=== PATIENT | female | born 1995 | race Caucasian/White ===

== ENCOUNTER 2020-03-28 14:36 | Outpatient (CLI) | payer BC ==
[2020-03-28 15:32] LABS: T.VAGINALIS (WET MOUNT) NO TRICHOMONAS SEEN
[2020-03-28 15:33] LABS: BACTERIA (WET MOUNT) 3+ BACTERIA SEEN; EPITHELIALS (WET MOUNT) 4+ EPITHELIALS SEEN; RBCS (WET MOUNT) 1+ RBCS SEEN; WBCS (WET MOUNT) 4+ WBCS SEEN; YEAST (WET MOUNT) YEAST SEEN
[2020-03-28 15:59] LABS: APPEARANCE,URINE CLOUDY; BILIRUBIN,URINE NEGATIVE (NEGATIVE); COLOR,URINE YELLOW; GLUCOSE, URINE NEGATIVE (NEGATIVE); KETONES,URINE NEGATIVE (NEGATIVE); LEUKOCYTE ESTERASE,URINE TRACE (NEGATIVE); NITRITE,URINE NEGATIVE (NEGATIVE); PROTEIN,URINE 100 mg/dL (NEGATIVE); URINE SPECIFIC GRAVITY 1.028
[2020-03-28 16:05] LABS: ADD MANUAL MICROSCOPIC YES
[2020-03-28 16:19] LABS: URINE AMPHETAMINES SCREEN NEGATIVE; URINE BARBITURATES SCREEN NEGATIVE; URINE BENZODIAZEPINES SCREEN NEGATIVE; URINE COCAINE SCREEN NEGATIVE; URINE METHADONE SCREEN NEGATIVE; URINE PHENCYCLIDINE SCREEN NEGATIVE
[2020-03-28 16:25] LABS: URINE MARIJUANA (THC) SCREEN UNCONFIRMED POSITIVE
[2020-03-28 17:05] LABS: CHLAM PCR NOT DETECTED (NOT DETECT)
== END 2020-03-28 15:56 | disposition home or self-care (01) ==
LOC: LC 14:36
PROVIDERS: ATTEND Obstetrics & Gynecology
DX: Z03.71 Encounter for suspected problem with amniotic cavity and membrane ruled out (principal); Z3A.25 25 weeks gestation of pregnancy; Z02.83 Encounter for blood-alcohol and blood-drug test
CPT/HCPCS: 59899; 87210; 81001; 80307; 87491; 87591; Q0114; G0480 ×2; 80349

== ENCOUNTER 2020-07-05 05:31 | Inpatient (IN) | payer BC ==
[2020-07-02 13:55] LABS: APPEARANCE,URINE CLEAR; BILIRUBIN,URINE NEGATIVE (NEGATIVE); COLOR,URINE YELLOW; GLUCOSE, URINE NEGATIVE (NEGATIVE); KETONES,URINE NEGATIVE (NEGATIVE); LEUKOCYTE ESTERASE,URINE NEGATIVE (NEGATIVE); NITRITE,URINE NEGATIVE (NEGATIVE); PROTEIN,URINE NEGATIVE (NEGATIVE); URINE SPECIFIC GRAVITY 1.016; UROBILINOGEN,URINE NEGATIVE mg/dL (<2.0)
[2020-07-02 14:08] LABS: URINE AMPHETAMINES SCREEN NEGATIVE; URINE BARBITURATES SCREEN NEGATIVE; URINE BENZODIAZEPINES SCREEN NEGATIVE; URINE COCAINE SCREEN NEGATIVE; URINE METHADONE SCREEN NEGATIVE; URINE PHENCYCLIDINE SCREEN NEGATIVE
[2020-07-02 14:19] LABS: URINE MARIJUANA (THC) SCREEN UNCONFIRMED POSITIVE
[2020-07-02 14:21] LABS: HEMATOCRIT 36.7 % (36.0-47.0); HEMOGLOBIN 12.6 g/dL (12.0-15.5); MEAN CORPUSCULAR HEMOGLOBIN 31.3 pg (27.0-33.4); MEAN CORPUSCULAR HGB CONC 34.4 g/dL (32.0-36.0); MEAN CORPUSCULAR VOLUME 91 fl (80-97); PLATELET COUNT 141 10^3/uL (150-450); RED BLOOD COUNT 4.04 10^6/uL (3.72-5.28)
[2020-07-02 14:54] LABS: ABSOLUTE MONOCYTES # (MANUAL) 0.6 10^3/uL (0.1-1.4); BAND NEUTROPHILS % (MANUAL) 1 % (3-5); BASOPHILS % (MANUAL) 0 % (0-2); EOSINOPHILS % (MANUAL) 1 % (0-6); LYMPHOCYTES % (MANUAL) 12 % (13-45); MONOCYTES % (MANUAL) 4 % (3-13); SEGMENTED NEUTROPHILS % (MAN) 80 % (42-78); TOTAL CELLS COUNTED 100
[2020-07-02 14:58] LABS: PLATELET COMMENT DECREASED; RBC MORPHOLOGY COMMENT NORMO-CYTIC/CHROMIC
[~2020-07-05 05:31] MED LIST: CEFAZOLIN 2 GM/D5W RTU 2 GM/50 ML RTUPB IV PRN; LACTATED RINGERS 1000 ML IV PRN; LIDOCAINE 0.5% INJ-PF (5 MG/ML) 50 ML SDV SUBCUT PRN
[2020-07-05] MEDS: RINGERS SOLUTION,LACTATED 1,500 ML IV PRN ×2 (06:00→06:56)
[2020-07-05] MEDS ORDERED: KETOROLAC TROMETHAMINE INJ/PF 30 MG/1 ML SDV ONE (07:22)
[2020-07-05] MEDS ORDERED: ACETAMINOPHEN 1,000 MG/100 ML RTUPB IV ONE (07:22)
[2020-07-05] MEDS ORDERED: ONDANSETRON HCL INJ/PF 4 MG/2 ML SDV ONE (07:22)
[2020-07-05] MEDS ORDERED: PHENYLEPHRINE HCL INJ/PF 10 MG/1 ML SDV ONE (07:22)
[2020-07-05] MEDS ORDERED: EPHEDRINE SULFATE INJ 50 MG/1 ML AMPULE ONE (07:22)
[2020-07-05] MEDS ORDERED: FENTANYL CITRATE INJ/PF 100 MCG/2 ML AMPUL ONE (07:22)
[2020-07-05] MEDS ORDERED: MIDAZOLAM 2 MG/2 ML INJ ONE (07:22)
[2020-07-05] MEDS ORDERED: OXYTOCIN 10 UNIT/ML VIAL ONE (07:22)
[2020-07-05] MEDS ORDERED: METHYLERGONOVINE MALEATE INJ/PF 0.2 MG/1 ML AMPULE ONE (07:23)
[2020-07-05] MEDS ORDERED: CEFAZOLIN 2 GM/D5W RTU 2 GM/50 ML RTUPB IV ONE (07:34)
[2020-07-05] MEDS ORDERED: PROMETHAZINE HCL INJ 25 MG/1 ML VIAL IV PRN ×3 (08:23→09:16)
[2020-07-05] MEDS ORDERED: OXYCODONE-ACETAMINOPHEN 5-325 MG TABLET PO PRN ×2 (08:23)
[2020-07-05] MEDS ORDERED: MEPERIDINE HCL/PF INJ 25 MG/1 ML DISP.SYRIN IV PRN (08:23)
[2020-07-05] MEDS ORDERED: DIPHENHYDRAMINE HCL 50 MG/ML VIAL IV PRN (08:23)
[2020-07-05] MEDS ORDERED: ONDANSETRON HCL INJ/PF 4 MG/2 ML SDV IV PRN (08:23)
[2020-07-05] MEDS ORDERED: FENTANYL CITRATE INJ/PF 100 MCG/2 ML AMPUL IV PRN ×3 (08:23)
[2020-07-05 08:24] LABS: HEMATOCRIT 32.4 % (36.0-47.0); HEMOGLOBIN 11.2 g/dL (12.0-15.5); MEAN CORPUSCULAR HEMOGLOBIN 31.7 pg (27.0-33.4); MEAN CORPUSCULAR HGB CONC 34.5 g/dL (32.0-36.0); MEAN CORPUSCULAR VOLUME 92 fl (80-97); PLATELET COUNT 138 10^3/uL (150-450); RED BLOOD COUNT 3.53 10^6/uL (3.72-5.28); WHITE BLOOD COUNT 10.3 10^3/uL (4.0-10.5)
[2020-07-05] MEDS ORDERED: ACETAMINOPHEN 650 MG SUPP.RECT PR PRN (09:16)
[2020-07-05] MEDS ORDERED: MAGNESIUM HYDROXIDE SUSP 30 ML UDCUP PO PRN (09:16)
[2020-07-05] MEDS ORDERED: BENZOCAINE/MENTHOL AEROSOL SPRAY 56 ML TOP PRN (09:16)
[2020-07-05] MEDS ORDERED: MEASLES,MUMPS&RUBELLA VACC/PF 0.5 ML VIAL SUBCUT PRN (09:16)
[2020-07-05] MEDS ORDERED: NA PHOS,M-B/NA PHOS,DI-BA (ADULT) 133 ML ENEMA PR PRN (09:16)
[2020-07-05] MEDS ORDERED: PROMETHAZINE HCL 25 MG TABLET PO PRN (09:16)
[2020-07-05] MEDS ORDERED: DIBUCAINE 1% OINTMENT 28 GM TP PRN (09:16)
[2020-07-05] MEDS ORDERED: GLYCERIN/WITCH HAZEL LEAF 1 EACH MED..WIPE TP PRN (09:16)
[2020-07-05] MEDS ORDERED: PROMETHAZINE HCL 25 MG SUPP.RECT PR PRN (09:16)
[2020-07-05] MEDS ORDERED: DIPHENHYDRAMINE HCL 25 MG CAPSULE PO PRN (09:16)
[2020-07-05] MEDS ORDERED: OXYTOCIN/0.9 % SODIUM CHLORIDE 30 UNIT/500 ML RTUINJ IV PRN (09:16)
[2020-07-05] MEDS ORDERED: ACETAMINOPHEN WITH CODEINE #3 TABLET PO PRN ×2 (09:16)
[2020-07-05] MEDS ORDERED: DIPH/PERTUSS(ACELL)/TETANUS VAC/PF 0.5 ML SYR (>=10YO) IM PRN (09:16)
[2020-07-05] MEDS ORDERED: PSEUDOEPHEDRINE HCL 30 MG TABLET PO PRN (09:16)
[2020-07-05] MEDS ORDERED: ZOLPIDEM TARTRATE 5 MG TABLET PO PRN (09:16)
--- NOTE | 2020-07-05 09:34 | Operative Report ---
Operative Report DATE OF SURGERY: 07/05/20 PREOPERATIVE DIAGNOSIS: Breech POSTOPERATIVE DIAGNOSIS: Same OPERATION: Primary via low transverse uterine incision SURGEON: NADIR ROBLEDO TISSUE REMOVED OR ALTERED: Placenta COMPLICATIONS: None ESTIMATED BLOOD LOSS: 250 cc INTRAOPERATIVE FINDINGS: Viable male crying at delivery PROCEDURE: Patient was taken to the OR and placed in supine position after her spinal anesthesia. She is prepared and draped in sterile fashion. Sald[place] was placed for drainage of the bladder. Low transverse incision was made and carried down the level of the fascia. The fascial incision was made with knife and extended bilaterally with curved Celis scissors. The fascia was off the rectus muscles using sharp and blunt dissection. The rectus muscles are in the midline. The peritoneum was entered without incident. Bladder blade was placed in uterine segment was identified. A low transverse incision was made creating a bladder flap. Bladder blade was placed low transverse uterine incision was made with the knife and extended with fingertips. The baby was delivered in breech fashion. Mouth and nose were suctioned free. The cord is doubly clamped and cut. Baby is passed off to the package lift operator in attendance. The placenta was manually extracted with trailing membranes. The uterus was externalized wrapped in a moist lap sponge. Uterine contents wiped free. Uterus was closed with a running locking layer of 0 chromic suture using the second layer to imbricate the first completing a double layer closure of the uterus. The serosa was closed with a running 2-0 chromic stitch. The pelvis was irrigated and suctioned free of fluid the uterus was replaced in the abdomen. The abdominal wall peritoneum was closed with running 2-0 chromic stitch. Fascia was closed with a running 0 Vicryl in 2 segments. Chantal's layer was brought together with 0 plain gut stitch and the skin was closed with running subcuticular 4-0 undyed Vicryl stitch. The wound was dressed mother and baby did well.
[2020-07-05] MEDS ORDERED: OXYCODONE-ACETAMINOPHEN 5-325 MG TABLET ONE (10:07)
[2020-07-05] MEDS ORDERED: MORPHINE SULFATE 10 MG/ML INJ ONE (10:29)
[2020-07-05] MEDS: MORPHINE SULFATE 10 MG/ML INJ IV PRN ×2 (10:30→11:05)
--- NOTE | 2020-07-05 11:00 | Delivery Summary ---
Del Sum A-C Datetime Report Generated by CPN: 07/05/2020 10:59 DELIVERY PERSONNEL DELIVERY PERSONNEL: [id number] Delivery Doctor:: Dyana Baker MD COMPUTER GAME PROGRAMMER:: Mckenzie Khan CRNA Wad Printing Machine Operator:: Coretta Portillo RN Nursery Nurse:: Ashleigh Szymanski RN Nursery Nurse:: SN Daryn Tafe Lecturer/WASHING MACHINE OPERATOR: Sarah Corbett CST Tafe Lecturer/WASHING MACHINE OPERATOR: Britney Haines, FIELD CARE MANAGER MATERNAL INFORMATION Delivery Anesthesia: Spinal Medications After Delivery: Pitocin Bolus-Please Comment; Pitocin Drip 20 Units/1000ml NSS Delivery QBL: 375 Maternal Complications: None LABOR SUMMARY EDC: 07/11/2020 00:00 Attempted: No Labor Anesthesia: None LABOR INFORMATION Reason for Induction: Not Applicable Oxytocin: N/A Group B Beta Strep: Positive Antibiotics # of Doses: 1 Antibiotics Time of Last Dose: 07/05/2020 07:58 Name of Antibiotic Given: Ancef 2g Steroids Given: None Reason Steroids Not Administered: Not Applicable MEMBRANES Membranes Rupture Method: Artificial Rupture of Membranes: 07/05/2020 08:29 Length of Rupture (hr): 0.02 Amniotic Fluid Color: Clear Amniotic Fluid Amount: Moderate Amniotic Fluid Odor: Normal STAGES OF LABOR Stage 3 hr: 0 Stage 3 min: 1 VAGINAL DELIVERY Episiotomy: None Laceration #1: None Laceration Extension #1: N/A Laceration Repair: Not Applicable Sponge Count Correct: N/A Sharps Count Correct: N/A CSECTION DELIVERY Primary Indication: Breech Presentation Secondary Indication: N/A CSection Urgency: Scheduled CSection Incidence: Primary Labor: No Labor Elective: Nonelective CSection Incision: Lower Uterine Transverse BABY A INFORMATION Delivery Date/Time: 07/05/2020 08:30 Method of Delivery: Nurse Controlled Delivery: No Born in Route : No : N/A Forceps: N/A Vacuum Extraction: N/A Shoulder Dystocia : No PRESENTATION/POSITION BABY A Presentation: Breech Cephalic Presentation: N/A PLACENTA INFORMATION BABY A Placenta Delivery Time : 07/05/2020 08:31 Placenta Method of Delivery: Manual Removal Placenta Status: Delivered SCORES BABY A Heart Rate 1 min: >100 bpm Resp Effort 1 min: Good Cry Reflex Irritability 1 min: Cough or Sneeze or Pulls Away Muscle Tone 1 min: Active Motion Color 1 min: Blue/Pale Resuscitation Effort 1 min: Tactile Stimulation SCORE 1 MIN: 8 Heart Rate 5 min: >100 bpm Resp Effort 5 min: Good Cry Reflex Irritability 5 min: Cough or Sneeze or Pulls Away Muscle Tone 5 min: Active Motion Color 5 min: Body [place], Extremities Blue Resuscitation Effort 5 min: N/A SCORE 5 MIN: 9 INFANT INFORMATION BABY A Gestational Age at Delivery: 39.1 Gestational Status: Full Term- 39- 40.6 Weeks Infant Outcome : Liveborn Infant Condition : Stable Infant Sex: Male IDENTIFICATION BABY A Verification Date/Time: 07/05/2020 08:35 ID Band Number: [id number] Mother's Name Verified: Yes Infant RN Verifying Infant: Main Portillo, RN Additional Verifying Personnel: CCassidy Szymanski, RN WEIGHT/LENGTH BABY A Infant Birthweight (gm): 3025 Weight (lb): 6 Weight (oz): 11 Length (in): 19.00 Length (cm): 48.26 CORD INFORMATION BABY A No. Cord Vessels: 3 Nuchal Cord : N/A Cord Blood Taken: Yes-For Eval (Mom's Blood Type - or O+) Suction: Mouth; Nose ASSESSMENT BABY A Infant Complications: None Physical Findings at Delivery: Within Normal Limits Respirations: Appears Normal Skin to Skin: Yes Infant Care By: Suad Szymanski, RN Transferred To: Nursery BABY B INFORMATION : N/A
--- NOTE | 2020-07-05 11:00 | Birth Certificate Data ---
Cert Data Datetime Report Generated by CPN: 07/05/2020 10:59 CERTIFICATE DATA Delivery Provider: Dyana BakerMD (07/05/2020 09:22:Coretta Sales, RN) 48b. Now Livin (03/28/2020 14:46:Isamar Sera, RN) Mother's Height 50b. Height Inches: 67 (07/05/2020 08:00:QS system process) Mother's Weight 51b. Weight at Delivery (lbs): 205 (07/05/2020 08:00:QS system process) Onset of Labor 56a. PROM >12 Hrs: 0.02 (03/28/2020 14:46:QS system process) 57a. Induction of Labor: N/A (03/28/2020 14:46:Coretta Portillo RN) 57c. Non-Vertex Presentation A: N/A (03/28/2020 14:46:AVIS Montiel 57d. Steroids - Lung Mat: None (03/28/2020 14:46:Coretta Portillo RN) 57d. Steroids - Lung Mat: Not Applicable (03/28/2020 14:46:Coretta Portillo RN) 57e. Antibiotics During Labor: 07/05/2020 07:58 (03/28/2020 14:46:Coretta Portillo RN) 57f. Mat [place] or Temp >100.4: 97.2 (03/28/2020 14:46:Coretta Portillo RN) 57g. Moderate/Heavy Meconium: Clear (03/28/2020 14:46:Coretta Portillo RN) 57h. Intolerance of Labor: Breech Presentation (03/28/2020 14:46:Coretta Portillo RN) : N/A (03/28/2020 14:46:Coretta Portillo RN) 57i. Epidural/Spinal Anesthesia: None (03/28/2020 14:46:Coretta Portillo RN) Method of Delivery 58a. Forceps - Unsuccessful A: N/A (03/28/2020 14:46:Coretta Portillo RN) 58b. Vacuum - Unsuccessful A: N/A (03/28/2020 14:46:Coretta oPrtillo RN) 58c. Presentation at 58c. Presentation at - A : N/A (03/28/2020 14:46:Coretta Sales, RN) 58c. Presentation at - A : Breech (03/28/2020 14:46:Coretta Sales, RN) Final Route and Method of Del 58d. Baby A Route/Delivery: (03/28/2020 14:46:Corettakrzysztof Portillo RN) 58e. Trial of Labor Attempted: No (03/28/2020 14:46:Coretta Sales, RN) 58e. Trial of Labor Attempted A: N/A (03/28/2020 14:46:Corettakrzysztof Portillo, RN) 58e. Trial of Labor Attempted B: N/A (03/28/2020 14:46:Coretta Sales, RN) Maternal Morbidity 59b. 3rd or 4th Degree Lacs: None (03/28/2020 14:46:Coretta Sales, RN) Birthweight Baby A: 3025 (03/28/2020 14:46:Coretta Sales, RN) 60a. Pounds : 6 (03/28/2020 14:46:QS system process) 60b. Ounces: 11 (03/28/2020 14:46:QS system process) 61. GA at Delivery Baby A: 39.1 (03/28/2020 14:46:Coretta Sales, RN) : Full Term- 39- 40.6 Weeks (03/28/2020 14:46:QS system process) 62a. 5 Minute Baby A: 9 (03/28/2020 14:46:QS system process)
[2020-07-05] MEDS: DOCUSATE SODIUM 100 MG CAPSULE PO SCH ×2 (11:55→17:30)
[2020-07-05] MEDS: PRENATAL VITAMIN W DHA CAPSULE PO SCH (11:56)
[2020-07-05] MEDS: FAMOTIDINE 20 MG TABLET PO SCH ×2 (11:56→21:17)
[2020-07-05] MEDS: FERROUS SULFATE 325 MG TABLET PO SCH ×2 (11:56→17:30)
[2020-07-05] MEDS: SENNOSIDES/DOCUSATE 8.6-50 MG 1 EACH TABLET PO SCH (11:56)
[2020-07-05] MEDS ORDERED: HYDROMORPHONE HCL INJ/PF 2 MG/ML AMPULE IV PRN (13:06)
[2020-07-05] MEDS: OXYCODONE-ACETAMINOPHEN 5-325 MG TABLET PO PRN ×2 (15:48→20:53)
[2020-07-05] MEDS: IBUPROFEN 800 MG TABLET PO SCH ×2 (17:25→21:09)
[2020-07-05] MEDS: KETOROLAC TROMETHAMINE INJ/PF 30 MG/1 ML SDV IV SCH (17:29)
[2020-07-06] MEDS ORDERED: ONDANSETRON HCL INJ/PF 4 MG/2 ML SDV IV ONE (00:45)
[2020-07-06] MEDS: KETOROLAC TROMETHAMINE INJ/PF 30 MG/1 ML SDV IV SCH (01:00)
[2020-07-06] MEDS: OXYCODONE-ACETAMINOPHEN 5-325 MG TABLET PO PRN ×2 (05:55→11:05)
[2020-07-06] MEDS: IBUPROFEN 800 MG TABLET PO SCH ×3 (05:56→21:30)
[2020-07-06 07:00] LABS: HEMATOCRIT 32.1 % (36.0-47.0); HEMOGLOBIN 10.9 g/dL (12.0-15.5); MEAN CORPUSCULAR HEMOGLOBIN 31.3 pg (27.0-33.4); MEAN CORPUSCULAR HGB CONC 34.1 g/dL (32.0-36.0); MEAN CORPUSCULAR VOLUME 92 fl (80-97); PLATELET COUNT 122 10^3/uL (150-450); RED BLOOD COUNT 3.49 10^6/uL (3.72-5.28); WHITE BLOOD COUNT 10.7 10^3/uL (4.0-10.5)
[2020-07-06] MEDS: DOCUSATE SODIUM 100 MG CAPSULE PO SCH ×2 (09:13→17:43)
[2020-07-06] MEDS: SENNOSIDES/DOCUSATE 8.6-50 MG 1 EACH TABLET PO SCH (09:13)
[2020-07-06] MEDS: FERROUS SULFATE 325 MG TABLET PO SCH ×2 (09:13→17:43)
[2020-07-06] MEDS: FAMOTIDINE 20 MG TABLET PO SCH ×2 (09:13→21:30)
[2020-07-06] MEDS: PRENATAL VITAMIN W DHA CAPSULE PO SCH (09:13)
--- NOTE | 2020-07-06 10:08 | PDOC PROGRESS REPORT ---
Subjective-OB Progress Note for:: 07/06/20 - POD #1, doing well UOB, voiding. Primary c/s for breech. O neg, baby is A+, needs Rhogam, Physical Exam (OB) Vital Signs: Temp Pulse Resp BP Pulse Ox 97.9 F 56 L 19 110/58 L 100 07/06/20 07:36 07/06/20 07:36 07/06/20 07:36 07/06/20 09:33 07/06/20 07:36 Intake & Output 07/05/20 07/06/20 07/07/20 06:59 06:59 06:59 Intake Total 932 2039 Output Total 3300 Balance 932 -1261 - General General Appearance: Appears well, Alert In distress: None - PIH/Pre-Eclampsia Headache: Absent Epigastric Pain: No Visual Changes: No - Dressing Removed: No Incision: Dressing, Well Approximated Closure Type: Sutures - Maternal Morbidity 59. Maternal Morbidity (serious complications experinced by the mother associat ed with labor and delivery: None of the above - Lochia Lochia Amount: Scant < 10 ml Lochia Color: Rubra/Red - Abdomen Description: Soft Hernia Present: No Fundal Description: Firm, Midline Fundal Height: u/u - u/2 - Respiratory Respiratory Status: No respiratory distress Breath sounds: Clear - Cardiovascular Rhythm: Regular Heart Sounds: Normal auscultation - Abdominal Distension: No distension Abdominal Notes: +bowel sounds - Genitourinary Genitourinary Note: voiding - Extremities Upper extremity: Normal inspection Lower extremities: Edema - Neurological Cognition: Confused Orientation: AAOx4 - Psychological Associated symptoms: Normal affect, Normal mood - Skin Skin Temperature: Warm Objective-Diagnostic Laboratory: 07/06/20 06:31 07/06/20 07/06/20 06:31 06:31 WBC 10.7 H RBC 3.49 L Hgb 10.9 L Hct 32.1 L MCV 92 MCH 31.3 MCHC 34.1 RDW 13.0 Plt Count 122 L Blood Type O NEGATIVE Assessment and Plan(PN) - Assessment and Plan (1) Breech presentation Qualifiers: Fetus number: single or unspecified fetus Qualified Code(s): O32.1XX0 - Maternal care for breech presentation, not applicable or unspecified Is this a current diagnosis for this admission?: Yes (2) Status post primary low transverse section Is this a current diagnosis for this admission?: Yes Plan:: ambulation encouraged, Routine Post Op orders - Disposition Anticipated Discharge Disposition: Home, Self Care Anticipated Discharge Timeframe: within 48 hours
[2020-07-06] MEDS ORDERED: SIMETHICONE 80 MG TAB.CHEW PO PRN (23:26)
[2020-07-07] MEDS: IBUPROFEN 800 MG TABLET PO SCH ×2 (06:29→15:38)
--- NOTE | 2020-07-07 10:16 | PDOC DISCHARGE SUMMARY ---
Impression - Admit/DC Date/PCP Admission Date/Primary Care Provider: 07/05/20 05:31 NADIR ROBLEDO MD Discharge Date: 07/07/20 - POD #2, doing well, desires to go home today, O negative, Rhogam needed, - Discharge Diagnosis (1) Breech presentation Is this a current diagnosis for this admission?: Yes (2) Status post primary low transverse section Is this a current diagnosis for this admission?: Yes (3) Rh negative status during Is this a current diagnosis for this admission?: Yes (4) Normal course Is this a current diagnosis for this admission?: Yes - Additional Information Resuscitation Status: Full Code Discharge Diet: As Tolerated, Regular Discharge Activity: Activity As Tolerated, No Driving, No Lifting Over 10 Pounds, Pelvic Rest Referrals: NADIR ROBLEDO MD [Primary Care Provider] - Prescriptions: Ibuprofen [Motrin 800 mg Tablet] 800 mg PO Q8 #60 tablet Oxycodone HCl/Acetaminophen [Percocet 5-325 mg Tablet] 1 tab PO Q4HP PRN #30 tablet PRN Reason: Pain Scale Of 4 Home Medications: Calcium Carbonate [Tums Chewable 500 mg Tab.chew] 500 mg PO PRN PRN 03/28/20 Melatonin [Melatonin 5 mg Tablet] 1 tab PO PRN PRN 03/28/20 Pnv No.95/Ferrous Fum/Folic AC [ Caplet] 1 tab PO DAILY 03/28/20 Ibuprofen [Motrin 800 mg Tablet] 800 mg PO Q8 #60 tablet 07/07/20 Oxycodone HCl/Acetaminophen [Percocet 5-325 mg Tablet] 1 tab PO Q4HP PRN #30 tablet 07/07/20 HPI Reason(s) for Admission: Ceasarean Section-Primary Admission Note: breech Procedures: Ultrasound Hospital Course 59. Maternal Morbidity (serious complications experinced by the mother associated with labor and delivery: None of the above Results Laboratory Results: WBC 10.7 10^3/uL (4.0-10.5) H 07/06/20 06:31 RBC 3.49 10^6/uL (3.72-5.28) L 07/06/20 06:31 Hgb 10.9 g/dL (12.0-15.5) L 07/06/20 06:31 Hct 32.1 % (36.0-47.0) L 07/06/20 06:31 MCV 92 fl (80-97) 07/06/20 06:31 MCH 31.3 pg (27.0-33.4) 07/06/20 06:31 MCHC 34.1 g/dL (32.0-36.0) 07/06/20 06:31 RDW 13.0 % (11.5-14.0) 07/06/20 06:31 Plt Count 122 10^3/uL (150-450) L 07/06/20 06:31 Lymph % (Auto) Not Reportable 07/02/20 11:57 [place] % (Auto) Not Reportable 07/02/20 11:57 Eos % (Auto) Not Reportable 07/02/20 11:57 Baso % (Auto) Not Reportable 07/02/20 11:57 Absolute Neuts (auto) Not Reportable 07/02/20 11:57 Absolute Lymphs (auto) Not Reportable 07/02/20 11:57 Absolute Monos (auto) Not Reportable 07/02/20 11:57 Absolute Eos (auto) Not Reportable 07/02/20 11:57 Absolute Basos (auto) Not Reportable 07/02/20 11:57 Total Counted 100 07/02/20 11:57 Seg Neutrophils % Not Reportable 07/02/20 11:57 Seg Neuts % (Manual) 80 % (42-78) H 07/02/20 11:57 Band Neutrophils % 1 % (3-5) L 07/02/20 11:57 Lymphocytes % (Manual) 12 % (13-45) L 07/02/20 11:57 Atypical Lymphs % 2 % (0) 07/02/20 11:57 Monocytes % (Manual) 4 % (3-13) 07/02/20 11:57 Eosinophils % (Manual) 1 % (0-6) 07/02/20 11:57 Basophils % (Manual) 0 % (0-2) 07/02/20 11:57 Abs Neuts (Manual) 11.3 10^3/uL (1.7-8.2) H 07/02/20 11:57 Abs Lymphs (Manual) 2.0 10^3/uL (0.5-4.7) 07/02/20 11:57 Abs Monocytes (Manual) 0.6 10^3/uL (0.1-1.4) 07/02/20 11:57 Absolute Eos (Manual) 0.1 10^3/uL (0.0-0.6) 07/02/20 11:57 Abs Basophils (Manual) 0.0 10^3/uL (0.0-0.2) 07/02/20 11:57 Platelet Comment DECREASED 07/02/20 11:57 RBC Morph Comment NORMO-CYTIC/CHROMIC 07/02/20 11:57 Urine Color YELLOW 07/02/20 11:59 Urine Appearance CLEAR 07/02/20 11:59 Urine pH 7.0 (5.0-9.0) 07/02/20 11:59 Ur Specific [place] 1.016 07/02/20 11:59 Urine Protein NEGATIVE mg/dL (NEGATIVE) 07/02/20 11:59 Urine Glucose (UA) NEGATIVE mg/dL (NEGATIVE) 07/02/20 11:59 Urine Ketones NEGATIVE mg/dL (NEGATIVE) 07/02/20 11:59 Urine Blood NEGATIVE (NEGATIVE) 07/02/20 11:59 Urine Nitrite NEGATIVE (NEGATIVE) 07/02/20 11:59 Urine Bilirubin NEGATIVE (NEGATIVE) 07/02/20 11:59 Urine Urobilinogen NEGATIVE mg/dL (<2.0) 07/02/20 11:59 Ur Leukocyte Esterase NEGATIVE (NEGATIVE) 07/02/20 11:59 Urine WBC (Auto) 2 /HPF 07/02/20 11:59 Urine RBC (Auto) 1 /HPF 07/02/20 11:59 Urine Bacteria (Auto) 1+ /HPF 07/02/20 11:59 Squamous Epi Cells Auto 1 /HPF 07/02/20 11:59 Urine Mucus (Auto) RARE /LPF 07/02/20 11:59 Urine Ascorbic Acid NEGATIVE (NEGATIVE) 07/02/20 11:59 Urine Opiates Screen NEGATIVE 07/02/20 11:59 Urine Methadone Screen NEGATIVE 07/02/20 11:59 Ur Barbiturates Screen NEGATIVE 07/02/20 11:59 Ur Phencyclidine Scrn NEGATIVE 07/02/20 11:59 Ur Amphetamines Screen NEGATIVE 07/02/20 11:59 U Benzodiazepines Scrn NEGATIVE 07/02/20 11:59 Urine Cocaine Screen NEGATIVE 07/02/20 11:59 U Marijuana (THC) Screen UNCONFIRMED POSITIVE 07/02/20 11:59 COVID-19 Source See comment 07/02/20 11:51 COVID-19 (BRINA) Not Detected (Not Detect) 07/02/20 11:51 Blood Type O NEGATIVE 07/06/20 06:31 Blood Type Confirm O NEGATIVE 07/05/20 06:13 Antibody Screen POSITIVE 07/04/20 11:10 Antibody Identification RHOGAM INDUCED ANTI-D 07/04/20 11:10 Screen NEGATIVE 07/06/20 06:31 Rhogam Indicated Cancelled 07/06/20 06:31 Crossmatch See Detail 07/04/20 11:10 Plan Plan of Treatment: d/c home, f/up in one week for incision check Time Spent: Less than 30 Minutes
[2020-07-07] MEDS: DOCUSATE SODIUM 100 MG CAPSULE PO SCH (10:18)
[2020-07-07] MEDS: FERROUS SULFATE 325 MG TABLET PO SCH (10:18)
[2020-07-07] MEDS: SENNOSIDES/DOCUSATE 8.6-50 MG 1 EACH TABLET PO SCH (10:18)
[2020-07-07] MEDS: FAMOTIDINE 20 MG TABLET PO SCH (10:18)
[2020-07-07] MEDS: PRENATAL VITAMIN W DHA CAPSULE PO SCH (10:18)
[2020-07-07] MEDS: OXYCODONE-ACETAMINOPHEN 5-325 MG TABLET PO PRN (10:25)
[2020-07-07 11:25] VITALS: BP 117/57
== END 2020-07-07 14:00 | disposition home or self-care (01) | DRG 788 ==
LOC: 2S 05:31
PROVIDERS: ADMIT Obstetrics & Gynecology; ATTEND Obstetrics & Gynecology
PROC: 10D00Z1 Extraction of Products of Conception, Low, Open Approach (ICD-10-PCS; principal; 2020-07-05)
PROC: 3E0234Z Introduction of Serum, Toxoid and Vaccine into Muscle, Percutaneous Approach (ICD-10-PCS; 2020-07-06)
DX: O32.1XX0 Maternal care for breech presentation, not applicable or unspecified (principal); O99.824 Streptococcus B carrier state complicating childbirth; O26.893 Other specified pregnancy related conditions, third trimester; Z67.41 Type O blood, Rh negative; Z20.828 Contact with and (suspected) exposure to other viral communicable diseases; O99.334 Smoking (tobacco) complicating childbirth; F17.210 Nicotine dependence, cigarettes, uncomplicated; Z3A.39 39 weeks gestation of pregnancy; Z37.0 Single live birth
CPT/HCPCS: 1961; 36415; 59025; 80307; 81001; 85027; 85461; 86850; 86870; 86900; 86901; 86920; 86922; 87635; 94760; C9803; J0131; J0690; J1170; J1885; J2210; J2250; J2270; J2370; J2405; J2590; J2790; J3010; J3490; J7120